=== PATIENT | female | born 1965 | race Caucasian/White ===

== ENCOUNTER → 2020-07-19 15:00 | Outpatient (CLI) | payer BC, SELFPAY ==
--- NOTE | ~2020-07-19 | MM_ITS ---
EXAMINATION: MM screening main BI w keith HISTORY: Screening mammogram TECHNIQUE: Craniocaudal and mediolateral oblique 3-D tomosynthesis images were obtained and synthetic 2-D images were generated. CAD analysis was submitted and interpreted. COMPARISON: 04/08/2019 diagnostic right mammogram 02/10/2019, 01/07/2018, 12/25/2016 bilateral digital screening mammogram examinations BREAST PARENCHYMAL COMPOSITION: There are scattered areas of fibroglandular density. FINDINGS: There is no evidence of suspicious mass, calcification, or architectural distortion to sugg est malignancy in either breast. There has been no suspicious interval change. IMPRESSION: 1. No mammographic evidence of malignancy. 2. Recommend routine screening mammography in one year. BI-RADS Category 1: Negative Reviewed, dictated and finalized at location A.
== END ==
PROVIDERS: Visit Provider Nurse Practitioner
DX: Z12.31 Encounter for screening mammogram for malignant neoplasm of breast (principal)
CPT/HCPCS: 77063; 77067

== ENCOUNTER 2020-07-27 14:57 | Emergency (ER) | payer BC, SELFPAY ==
--- NOTE | ~2020-07-27 | US_ITS ---
US venous doppler LE RT DATE: 07/27/2020 18:07 INDICATION: Right leg pain TECHNIQUE: Real-time and color flow imaging and Doppler analysis of the right lower extremity COMPARISON: None FINDINGS: The right greater saphenous vein is patent. There is spontaneous and phasic flow and normal augmentation and color flow signal and normal compression of the deep veins of the right lower extre mity. IMPRESSION: Negative examination; no evidence of deep venous thrombosis of right leg Reviewed, dictated and finalized at Location [facility]. Reviewed, dictated and finalized at location A. IMPRESSION: Negative examination; no evidence of deep venous thrombosis of righ t leg
[2020-07-27 15:22] VITALS: BP 104/69; PULSE 72; RESP 12; TEMP 36.1; O2SAT 99
--- NOTE | 2020-07-27 15:30 | PC.NURSE ---
discussed with Dr. Mackenzie; orders received to draw d-dimer
[2020-07-27 16:00] LABS: D Dimer 0.27 ug/mL (<0.48)
[2020-07-27 17:12] VITALS: BP 117/72; PULSE 66; RESP 16; TEMP 36.6; O2SAT 100
--- NOTE | 2020-07-27 17:19 | ED.EXTPRO ---
HPI - Extremity Problem General Chief complaint: Extremity Problem,Nontraumatic Stated complaint: headache Time Seen by Provider: 07/27/20 17:09 Source: patient Mode of arrival: ambulatory Limitations: no limitations History of Present Illness HPI Narrative: Patient is a 55 year old female who presents complaining of headache and right leg pain. She reports pain of 3/10 from headache. Patient denies visual changes. She reports having Francis and Francis Covid vaccine on 07/21/20. She was sent by PCP office to rule out DVT related to Covid vaccine. Denies redness or swelling to leg. Reports pain with palpation. She denies shortness of breath, chest pain or other complaints. MD Complaint: extremity pain Related Data Allergies Allergy/AdvReac Type Severity Reaction Status Date / Time No Known Allergies Allergy Verified 09/23/19 08:51 Review of Systems Review of Systems: Narrative: CONSTITUTIONAL: Denies fever, chills, or sweats. EYES: Denies visual changes, redness, or discharge. ENT: Denies rhinorrhea, congestion, sore throat, or otalgia. CARDIOVASCULAR: Denies chest pain, palpitations, or edema. RESPIRATORY: Denies cough or dyspnea. GASTROINTESTINAL: Denies abdominal pain, nausea, vomiting, or diarrhea. GENITOURINARY: Denies dysuria or hematuria. SKIN: Denies rash or itching. MUSCULOSKELETAL:Reports right above the knee leg pain, denies injury. NEUROLOGIC: Denies headache, numbness, dizziness, or weakness. PSYCHIATRIC: Denies anxiety or depression. PENDING SALE TO [facility] Past Medical History Medical History Acute sinusitis, unspecified Benign paroxysmal positional vertigo due to bilateral vestibular disorder BMI 27.0-27.9,adult Mixed hyperlipidemia Family History Family History Grandparent Family history of malignant neoplasm Family history of malignant neoplasm of ovary, Onset Age: 38 Father Carcinoma of colon, Onset Age: 57 Social History Social History Smoking status: Never smoker Alcohol intake: never Substance use: never Substance use type: does not use Comments At the time of signature, I have reviewed and agree with nursing past medical, surgical, social, and family history unless otherwise noted. Please see nursing chart for further information. There is no relevant family history pertinent to the presenting complaint. Exam Narrative: Exam Narrative: GENERAL: Well-appearing, well-nourished, and in no acute distress. HEAD: Normocephalic, atraumatic. EYES: EOMI. No redness or drainage. Conjunctiva are normal. ENT: Mucous membranes pink and moist. Nares clear. No rhinorrhea. TMs normal bilaterally. Throat normal. Uvula midline. NECK: AROM. Supple. No lymphadenopathy. CHEST: No respiratory distress. Clear to auscultation. HEART: Regular rate and rhythm. No murmur appreciated. Normal peripheral pulses. EXTREMITIES: Normal range of motion, no erythema, warmth or edema. SKIN: Warm, dry, no rash. NEURO: No focal deficits. Alert and oriented x3. Gait steady. PSYCH: Normal affect. No signs of depression or anxiety. Course Vital Signs Vital signs: Vital Signs Temperature 36.1 C L 07/27/20 15:22 Pulse Rate 72 07/27/20 15:22 Respiratory Rate 12 07/27/20 15:22 Blood Pressure 104/69 07/27/20 15:22 Pulse Oximetry 99 07/27/20 15:22 Temperature 36.6 C 07/27/20 17:12 Pulse Rate 66 07/27/20 17:12 Respiratory Rate 16 07/27/20 17:12 Blood Pressure 117/72 07/27/20 17:12 Pulse Oximetry 100 07/27/20 17:12 Reviewed MDM - Extremity (Nontraumatic) MDM Narrative Medical decision making narrative: Patient's labs are unremarkable. Ultrasound of right leg negative for DVT. Discussed with patient symptoms that would be concerning and would need a return visit to the ED. Discussed causes of headaches. Enc
[2020-07-27 17:44] LABS: Basophils Absolute Auto 0.1 K/mm3 (0.0-0.1); Basophils Percent Auto 0.8 % (0.2-1.2); Eosinophils Absolute Auto 0.1 K/mm3 (0-0.3); Eosinophils Percent Auto 1.5 % (0-4.4); Hematocrit 38.6 % (37.0-47.0); Hemoglobin 12.8 g/dL (12.0-15.0); Immature Granulocyte Absolute 0.01 K/mm3 (0.00-0.031); Immature Granulocyte Percent A 0.2 % (0-0.5); Lymphocytes Absolute Auto 2.66 K/mm3 (0.9-3.2); Lymphocytes Percent Auto 44.3 % (18.3-44.2); Mean Corpuscular HGB Conc 33.2 g/dl (32-36); Mean Corpuscular Volume 93.5 fl (80-100); Mean Platelet Volume 10.2 fl (7.4-10.4); Monocytes Absolute Auto 0.5 K/mm3 (0.1-0.6); Monocytes Percent Auto 7.8 % (2.6-8.5); Neutrophils Absolute Auto 2.7 K/mm3 (1.3-6.7); Neutrophils Percent Auto 45.4 % (45.5-73.1); Platelet Count Result 305 k/mm3 (150-375); Red Blood Count 4.13 M/mm3 (4.2-5.4); Red Cell Distribution Width 12.6 % (11.5-14.5)
[2020-07-27 17:47] LABS: Alanine Aminotransferase 25 U/L (4-35); Albumin Level 4.4 g/dL (3.5-5.1); Alkaline Phosphatase 53 U/L (38-126); Anion Gap 6 mmol/L (8-16); Aspartate Amino Transferase 32 U/L (14-36); Bilirubin,Total 0.2 mg/dL (0.2-1.3); Blood Urea Nitrogen 18 mg/dL (7-17); Calcium 9.1 mg/dL (8.4-10.2); Carbon Dioxide 31 mmol/L (22-30); Chloride 101 mmol/L (98-107); Estimated CRCL calculation 64 ml/min; Estimated Glomerular Filt Rate > 60; Glucose 110 mg/dL (65-105); Potassium 4.8 mmol/L (3.4-5.0); Sodium 138 mmol/L (137-145)
[2020-07-27 18:50] VITALS: BP 109/67; PULSE 69; RESP 16; O2SAT 100
== END 2020-07-27 18:50 | disposition home or self-care (01) ==
PROVIDERS: Emergency Medicine; Emergency Provider Nurse Practitioner; PCP Family Medicine
DX: M79.604 Pain in right leg (principal); E78.2 Mixed hyperlipidemia; H81.13 Benign paroxysmal vertigo, bilateral
CPT/HCPCS: 36415; 80053; 85025; 85380; 93971; 99284

== ENCOUNTER 2021-12-10 01:17 | Day surgery (SDC) | payer BC, SELFPAY ==
[2021-12-07 10:09] VITALS: BMI 30.2
--- NOTE | 2021-12-07 10:19 | PC.NURSE ---
Report to the Outpatient Waiting Room, entrance under the green pavilion located off [facility], at time 0900 on date 12/10/21. OR Time: 1100. - You and your visitor will be asked to self-screen and do not enter if you have any COVID symptoms. - Only one visitor and NO children visitors are allowed at this time. - The patient visitor is requested to leave or wait in car when not with patient due to restrictions. - A mask is required within the hospital. Patients may have clear liquids (water, carbonated beverages, clear teas, apple juice) until 3 hours prior to surgery with a maximum of 20 ounces. - No food from midnight until time of surgery Take the following medications with a SIP of water the morning of surgery: ESCITALOPRAM Medications to discontinue per physician: VITAMINS/SUPPLEMENTS Date to take last dose: 12/06/21 Please no make-up, nail rwandan, hairspray, perfume, deodorant, or body powder the day of surgery. No jewelry (including any body piercings) or valuables the day of surgery, leave them at home. Please take a shower or bath the night before, or the morning of, surgery with an antibacterial soap. Wear comfortable, loose fitting clothing. - Jewelry must be removed prior to entering the operating room. Rings and piercings that are not removed may be cut off. - The hospital will not accept responsibility for valuables. - Please leave all valuables, including medications, at home the day of surgery. If you are going home after surgery, a licensed hog driver must drive you home. - NO public transportation without another adult. - We recommend that an adult stay with you for 24 hours following discharge. - We also recommend that you do not drive, make important decision, drink alcoholic beverages, or take any drugs that were not prescribed by your health care provider for at least 24 hours after your discharge time. Follow any additional instructions given to you from your surgeon. If you or anyone in your household have experienced Covid symptoms in the past week, please notify your surgeon or the nurse liaison at the phone number below for possible testing. Telephone instructions given to PT - CLEO GROSSMAN and asked if any additional questions and then verbalized understanding. Patient advised to call surgeon office or pre surgery nurse liaison [phone] if any additional questions.
[2021-12-10 09:19] VITALS: BP 106/70; PULSE 68; RESP 16; TEMP 36.1; O2SAT 98
[2021-12-10] MEDS: LACTATED RINGERS 1,000 ML 30 ML IV CONT (09:32)
[2021-12-10] MEDS: KETOROLAC 15 MG/ML VIAL (*BKC) IV PUSH (09:33)
[2021-12-10] MEDS: ACETAMINOPHEN 500 MG TABLET 1000 MG PO (09:33)
--- NOTE | 2021-12-10 09:40 | SUR.PREOP ---
DR FELIPE STATES NO HAIR REMOVAL NEEDED UNLESS PT IS EXTREMELY HAIRY
[2021-12-10 10:04] LABS: Glucose Point of Care 111 mg/dl (65-105)
--- NOTE | 2021-12-10 10:05 | WPDANESEPPF ---
Anes - Initial Pre Proc Eval Procedure: Operation Date: 12/10/21 11:00 Proposed Procedures p Left Trigger Thumb Release - Christopher Armenta MD Date/Time: 12/10/21 10:05 Surgeon: Christopher Armenta MD Pre Op Diagnosis: Lt Trigger Thumb Patient Data Age: 56 Gender: F Height: 1.52 m Weight: 69.3 kg Last Vital Signs Temp 36.1 C L 12/10/21 09:19 Pulse 68 12/10/21 09:19 Resp 16 12/10/21 09:19 BP 106/70 12/10/21 09:19 Pulse Ox 98 12/10/21 09:19 O2 Del Method Room Air 12/10/21 09:19 Allergies Allergy/AdvReac Type Severity Reaction Status Date / Time No Known Allergies Allergy Verified 12/07/21 10:06 Home Medications Medication Instructions Recorded Confirmed Type escitalopram oxalate 10 mg tablet 10 mg PO DAILY #90 tabs 10/27/20 12/10/21 Rx naproxen 500 mg tablet 500 mg PO BID PRN pain #180 tabs 10/27/20 12/10/21 Rx metformin 500 mg tablet,extended 2,000 mg PO QPM #360 tabs 10/17/21 12/10/21 Rx release 24 hr semaglutide 0.25 mg or 0.5 mg (2 0.5 mg (0.4 mL) subcut WEEKLY #1.5 11/29/21 12/10/21 Rx mg/1.5 mL) subcutaneous pen mL injector (Ozempic) vitamin B complex (B 1 tablet PO DAILY 12/06/21 12/10/21 History Complex-Vitamin B12 tablet) Laboratory Tests 12/10/21 10:00 POC Capillary Glucose 111 mg/dl H mg/dl (65-105) Patient hx anesthesia problems: none Family hx anesthesia problems: none Results Review: All pre-operative results and documents have been reviewed as part of the pre-operative evaluation. [facility] Past Medical History Medical History Anxiety BMI 29.0-29.9,adult Diabetes Obesity (BMI 30.0-34.9) Pain of left thumb (~10/03/21) Trigger thumb, left thumb Surgical History Surgical History History of bilateral breast reduction surgery History of prior ablation treatment Family History Family History Grandparent Family history of malignant neoplasm Family history of malignant neoplasm of ovary, Onset Age: 38 Father Carcinoma of colon, Onset Age: 57 Diabetes mellitus Sibling Asthma Social History Social History Smoking status: Former smoker Tobacco type: cigarettes Additional smoking assessment comments: QUIT YEARS AND YEARS AGO Alcohol intake: current Drinks per week: 4 Alcohol use details: vodka Substance use: never Substance use type: does not use Living arrangements: with family 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 Informed Consent: The patient's anesthetic plan and its attendant risks and benefits were discussed with the patient/family/POA. Questions were solicited and answers provided to the satisfaction of the patient/family/POA.
--- NOTE | 2021-12-10 10:17 | WPDHPUPDATE1 ---
History and Physical Update Update Date/Time: 12/10/21 10:17 History and Physical has been reviewed, including an updated exam of the patient. There are NO changes in the patient's condition. Risks, benefits, and alternatives have been discussed and questions answered. Patient agrees to proceed with procedure.
--- NOTE | 2021-12-10 10:24 | WPDHPUPDATE1 ---
History and Physical Update Update Date/Time: 12/10/21 10:24 History and Physical has been reviewed, including an updated exam of the patient. There are NO changes in the patient's condition. Risks, benefits, and alternatives have been discussed and questions answered. Patient agrees to proceed with procedure.
[2021-12-10] MEDS: ceFAZolin 2 GM/D5W 50 ML 2 GM/50 ML BAG IVPB (10:35)
[2021-12-10] MEDS: BUPIVACAINE HCL 0.25% PF 30 ML VIAL 5 ML INFILTRATE (11:00)
[2021-12-10 11:08] VITALS: BP 93/53; PULSE 54; RESP 14; O2SAT 100
--- NOTE | 2021-12-10 11:15 | W.PM.PROC2 ---
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 She was taken to the operating room and transferred to the OR table placing supine taking care to pad the torso and extremities. IV sedation was administered. A nonsterile tourniquet was placed high on the left arm which was prepped and draped in the usual sterile fashion. Several cc of .25 % plain Marcaine was injected into the subcutaneous tissue over the A1 tory of the left first digit. The extremity was exsanguinated and the tourniquet was inflated to 250 mmHg remaining up for about seven minutes. A longitudinal incision was made over the A1 tory. Subcutaneous tissue was bluntly dissected down to the tory while protecting the neurovascular bundles. The A1 tory was identified and then transected longitudinally in line with the incision and tendons. The tendons were delivered into the wound verifying the adequacy of the release. Hemostasis was carried out. The wound was irrigated with sterile saline. Skin edges were reapproximated with 4-0 nylon suture. Sterile dressing was applied. Tourniquet was released. She tolerated the procedure well and was transferred back to a cart, then taken to the recovery area in stable condition. There were no known intraoperative complications. Estimated blood loss was negligible. Perioperative antibiotics were administered. Estimated Blood Loss 1 Tourniquet Time 7 Drains No Packing No Pathology None sent Complications No immediate complications Condition Stable Disposition PACU
[2021-12-10 11:35] VITALS: BP 100/64; PULSE 49; RESP 16; O2SAT 99
[2021-12-10 12:00] VITALS: BP 111/65; PULSE 50; RESP 16
== END 2021-12-10 12:05 | disposition home or self-care (01) ==
PROVIDERS: PCP Family Medicine; Visit Provider Orthopaedic Surgery
PROC: (CPT 26055; principal; 2021-12-10 11:00)
DX: M65.312 Trigger thumb, left thumb (principal); E11.9 Type 2 diabetes mellitus without complications; F41.9 Anxiety disorder, unspecified; E66.9 Obesity, unspecified; Z68.29 Body mass index [BMI] 29.0-29.9, adult; Z79.84 Long term (current) use of oral hypoglycemic drugs; Z79.899 Other long term (current) drug therapy; Z87.891 Personal history of nicotine dependence
CPT/HCPCS: 26055; 82948; A9270; J0690; J1885; J2250; J2704; J3010; J7120

== ENCOUNTER → 2022-05-21 13:24 | Outpatient (CLI) | payer BC, SELFPAY ==
--- NOTE | ~2022-05-21 | MMUS_ITS ---
EXAMINATION: MM diagnostic main BI w keith, US breast LT limited HISTORY: Palpable lump of left breast TECHNIQUE: ML, MLO and CC 3-D tomosynthesis images of both breasts were performed and synthetic 2-D i mages were generated. CAD analysis was submitted and interpreted. High resolution targeted left breas t ultrasound at 2:00 7 cm from nipple at area of clinical complaint of lump was performed. COMPARISON: 07/19/2020 bilateral screening mammogram 04/08/2019 diagnostic right mammogram 02/10/2019 bilateral screening mammogram BREAST PARENCHYMAL COMPOSITION: The breasts are almost entirely fatty. FINDINGS: MAMMOGRAPHIC FINDINGS: No suspicious mass or architectural distortion, malignant calcification, skin thickening or retractio n or significant new or developing density is detected. ULTRASOUND: No suspicious mass or shadowing, cyst or other significant sonographic abnormality is identified at 2 :00 7 cm from nipple at the area of clinical complaint of breast lump. IMPRESSION: 1. No mammographic evidence of malignancy 2. Routine annual mammographic screening is recommended. BI-RADS Category 1: Negative Reviewed, dictated and finalized at location A. DATA MODELER IMPRESSION: 1. No mammographic evidence of malignancy 2. Routine annual mammographic screening is recommended. BI-RADS Category 1: Negative
--- NOTE | ~2022-05-21 | DEXA_ITS ---
Bone Density Report Name: CLEO GROSSMAN Age: 57 Sex: Female Ethnicity: White Date of : 1965 Indication: postmenopausal; screening for osteoporosis; Referring Provider: KEV, KAEL Study: Bone densitometry was performed. Exam Date: May 21, 2022 Accession number: [id number] Bone Density: Region BMD T-score Z-score Classification AP Spine (L1-L4) 0.965 -0.7 0.5 Normal Femoral Neck (Left) 0.688 -1.4 -0.3 Osteopenia Total Hip (Left) 0.907 -0.3 0.5 Normal Femoral Neck (Right) 0.760 -0.8 0.3 Normal Total Hip (Right) 0.968 0.2 1.0 Normal Total Hip Mean 0.938 -0.1 0.8 Normal World Health Organization criteria for BMD impression classify patients as: Normal (T-score at or above -1.0), Osteopenia (T-score between -1.0 and -2.5), or Osteoporosis (T-score at or below -2.5). 10-year Fracture Risk(1): Major Osteoporotic Fracture 6.9% Hip Fracture 0.5% Reported Risk Factors: [place] (), Neck BMD=0.688, BMI=30.1 (1) FRAX(R) Version 3.08. Fracture probability calculated for an untreated patient. Fracture probability may be lower if the patient has received treatment. Previous Exams: Region Exam Age BMD T-score BMD Change BMD Change Date g/cm2 vs Baseline vs Previous AP Spine(L1-L4) 05/21/2022 57 0.965 -0.7 -0.053* -0.053* 01/07/2018 52 1.019 -0.3 Total Hip(Left) 05/21/2022 57 0.907 -0.3 0.004 0.004 01/07/2018 52 0.903 -0.3 Total Hip(Right) 05/21/2022 57 0.968 0.2 0.003 0.003 01/07/2018 52 0.965 0.2 *Denotes significance at 95% confidence level, LSC for AP Spine = 0.022 g/cm2, LSC for Total Hip = 0.027 g/cm2 Clinical Information Provided by Patient: Patient maximum height was 61.2 Menopause Age: 43 No regular weight bearing exercise Drinks caffeinated beverages Onset of menses at age 13 Number of children 1 Impression: The patient has low bone mass, based on the Left Femoral Neck T-score. The patient has an estimated ten-year risk of hip fracture of 0.5% and an estimated ten-year risk of major fracture of 6.9%, based on the WHO FRAX algorithm. The BMD for the AP Spine(L1-L4) decreased, changing by -0.053 since the last DXA exam. Discussion: BONE DENSITY IS LOW AT ONE OR MORE SKELETAL SITES. This patient's lowest T-score is low at one or more skeletal sites. It meets the World Health Organization's (WHO) criteria for ?low bone mass?
== END ==
PROVIDERS: PCP Nurse Practitioner; Visit Provider Obstetrics & Gynecology Gynecology
DX: Z78.0 Asymptomatic menopausal state (principal); N63.20 Unspecified lump in the left breast, unspecified quadrant; M85.852 Other specified disorders of bone density and structure, left thigh
CPT/HCPCS: 76642; 77062; 77066; 77080; G0279

== ENCOUNTER 2022-11-05 01:44 | Day surgery (SDC) | payer BC, SELFPAY ==
[2022-10-24 13:10] VITALS: BMI 31.3
[2022-11-05 06:40] VITALS: BP 113/68; PULSE 66; RESP 18; TEMP 35.8; O2SAT 98; BMI 30.7
[2022-11-05] MEDS: LACTATED RINGERS 1,000 ML 150 ML IV CONT (07:00)
[2022-11-05 07:02] LABS: Glucose Point of Care 148 mg/dl (65-105)
--- NOTE | 2022-11-05 07:48 | PM.HPGS ---
History of Present Illness History of Present Illness Consent: Risks, benefits, and alternatives have been discussed and questions answered. Patient agrees to proceed with procedure. Chief complaint: family hx colon ca, hx colon polyps Narrative: Ade Hanks is a 57 year old female Presents for screening colonoscopy. Patient has had several previous colonoscopies all performed in [place]. In the past she was found to have colon polyps. Family history is significant her father had colon cancer her maternal grandmother also had colon cancer. Patient reports that her own weight appetite and bowel movements are normal. Review of Systems Review of Systems: Review of systems noncontributory. [facility] Past Medical History Medical History (Updated 11/05/22 @ 07:50 by Danilo Petersen MD) Acute bronchitis (~03/13/22) COVID test was negative on 03/14/22 Anxiety BMI 29.0-29.9,adult Diabetes Obesity (BMI 30.0-34.9) Osteopenia Pain of left thumb (~10/03/21) Trigger thumb, left thumb Left trigger thumb release December 10, 2021 Surgical History Surgical History History of bilateral breast reduction surgery History of prior ablation treatment Family History Family History Grandparent Family history of malignant neoplasm Family history of malignant neoplasm of ovary, Onset Age: 38 Father Carcinoma of colon, Onset Age: 57 Diabetes mellitus Sibling Asthma Social History Social History (Updated 07/10/22 @ 08:12 by Jeanette Gallegos MA) Smoking status: Never smoker Tobacco type: cigarettes Additional smoking assessment comments: QUIT YEARS AND YEARS AGO Alcohol intake: current Drinks per week: 2 Alcohol use details: vodka Substance use: never Substance use type: does not use Current Housing: Decline to Answer Concerned About Future Housing: Decline to Answer Difficulty Paying Gas/Electric Bills: Decline to Answer Difficulty Paying for Meds: Decline to Answer Currently Unemployed: Decline to Answer Education: Decline to Answer Difficulty w/ Childcare or Family Care: Decline to Answer Living arrangements: with family Occupation/Education: occupation 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[employer] Spiritual care concerns: No Meds Home Medications and Allergies Home Medications Medication Instructions Recorded Confirmed Type naproxen 500 mg tablet 500 mg PO BID PRN pain #180 tabs 04/05/22 11/05/22 Rx escitalopram oxalate 10 mg tablet 10 mg PO DAILY #90 tabs 07/16/22 11/05/22 Rx metformin 500 mg tablet,extended 2,000 mg PO QPM #360 tabs 11/04/22 11/05/22 Rx release 24 hr Allergies Allergy/AdvReac Type Severity Reaction Status Date / Time No Known Allergies Allergy Verified 11/05/22 06:45 Vital Signs Vital Signs - 24 hr 11/05/22 06:40 Temperature 96.5 F L Pulse Rate 66 Respiratory Rate 18 Blood Pressure 113/68 Pulse Oximetry 98 Oxygen Delivery Room Air Exam Narrative: Physical exam reveals patient to be alert. Vital signs stable. HEENT exam is unremarkable. Patient is anicteric. Lungs are clear to auscultation and percussion. Heart is without murmur or extra sounds. Abdomen bowel sounds are present soft nontender with no organomegaly. Digital external rectal exam is normal. Assessment and Plan Assessment and plan (1) History of colon polyps: Code(s): Z86.010 - Personal history of colonic polyps Status: Acute Assessment and Plan: Patient has had colon polyp on previous colonoscopies. Most recent exam appears to have been 5 years ago in [place]. Continue surveillance at 5 year intervals. (2) Family history of colon cancer in father: Code(s): Z80.0 - Family history of malignant neoplasm of digestive organs Status: Acute Asse
--- NOTE | 2022-11-05 07:54 | WPDANESEPPF ---
Anes - Initial Pre Proc Eval Procedure: Operation Date: 11/05/22 08:00 Proposed Procedures p Colonoscopy - Danilo Petersen MD Date/Time: 11/05/22 07:54 Surgeon: Danilo Petersen MD Pre Op Diagnosis: family hx colon ca, hx colon polyps Patient Data Age: 57 Gender: F Height: 1.52 m Weight: 71.2 kg Last Vital Signs Temp 96.5 F L 11/05/22 06:40 Pulse 66 11/05/22 06:40 Resp 18 11/05/22 06:40 BP 113/68 11/05/22 06:40 Pulse Ox 98 11/05/22 06:40 O2 Del Method Room Air 11/05/22 06:40 Allergies Allergy/AdvReac Type Severity Reaction Status Date / Time No Known Allergies Allergy Verified 11/05/22 06:45 Home Medications Medication Instructions Recorded Confirmed Type naproxen 500 mg tablet 500 mg PO BID PRN pain #180 tabs 04/05/22 11/05/22 Rx escitalopram oxalate 10 mg tablet 10 mg PO DAILY #90 tabs 07/16/22 11/05/22 Rx metformin 500 mg tablet,extended 2,000 mg PO QPM #360 tabs 11/04/22 11/05/22 Rx release 24 hr Laboratory Tests 11/05/22 06:51 POC Capillary Glucose 148 H mg/dl (65-105) Patient hx anesthesia problems: none Family hx anesthesia problems: none Results Review: All pre-operative results and documents have been reviewed as part of the pre-operative evaluation. [facility] Past Medical History Medical History (Updated 11/05/22 @ 07:50 by Danilo Petersen MD) Acute bronchitis (~03/13/22) COVID test was negative on 03/14/22 Anxiety BMI 29.0-29.9,adult Diabetes Obesity (BMI 30.0-34.9) Osteopenia Pain of left thumb (~10/03/21) Trigger thumb, left thumb Left trigger thumb release December 10, 2021 Surgical History Surgical History History of bilateral breast reduction surgery History of prior ablation treatment Family History Family History Grandparent Family history of malignant neoplasm Family history of malignant neoplasm of ovary, Onset Age: 38 Father Carcinoma of colon, Onset Age: 57 Diabetes mellitus Sibling Asthma Social History Social History (Updated 07/10/22 @ 08:12 by Jeanette Gallegos MA) Smoking status: Never smoker Tobacco type: cigarettes Additional smoking assessment comments: QUIT YEARS AND YEARS AGO Alcohol intake: current Drinks per week: 2 Alcohol use details: vodka Substance use: never Substance use type: does not use Current Housing: Decline to Answer Concerned About Future Housing: Decline to Answer Difficulty Paying Gas/Electric Bills: Decline to Answer Difficulty Paying for Meds: Decline to Answer Currently Unemployed: Decline to Answer Education: Decline to Answer Difficulty w/ Childcare or Family Care: Decline to Answer Living arrangements: with family Occupation/Education: occupation 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 Informed Consent: The patient's anesthetic plan and its attendant risks and benefits were discussed with the patient/family/POA. Questions were solicited and answers provided to the satisfaction of the patient/family/POA.
[2022-11-05 08:28] VITALS: BP 118/60; PULSE 56; RESP 16; O2SAT 100
[2022-11-05 08:38] VITALS: BP 115/65; PULSE 53; RESP 18; O2SAT 100
[2022-11-05 08:48] VITALS: BP 111/62; PULSE 55; RESP 18; O2SAT 100
== END 2022-11-05 09:00 | disposition home or self-care (01) ==
PROVIDERS: PCP Family Medicine; Visit Provider Internal Medicine Gastroenterology
PROC: 0DJD8ZZ Inspection of Lower Intestinal Tract, Via Natural or Artificial Opening Endoscopic (ICD-10-PCS; CPT 45378; principal; 2022-11-05 08:00)
DX: Z12.11 Encounter for screening for malignant neoplasm of colon (principal); K64.8 Other hemorrhoids; Z86.010 Personal history of colon polyps; Z80.0 Family history of malignant neoplasm of digestive organs; E11.9 Type 2 diabetes mellitus without complications; F41.9 Anxiety disorder, unspecified; Z79.84 Long term (current) use of oral hypoglycemic drugs; E66.9 Obesity, unspecified; Z68.30 Body mass index [BMI] 30.0-30.9, adult; Z87.891 Personal history of nicotine dependence
CPT/HCPCS: 45378; 82948; J2001; J2704; J7120

== ENCOUNTER 2023-01-21 01:19 | Day surgery (SDC) | payer BC, SELFPAY ==
[2023-01-14 10:40] VITALS: BMI 31.2
--- NOTE | 2023-01-14 10:47 | PC.NURSE ---
Report to the Outpatient Waiting Room, entrance under the green pavilion located off [facility], at time 7:00 on date 01/21/23. Planned Procedure Time: 9:00. Time changes happen often and if your time is changed the preop area will call you the afternoon before. - You and your visitor will be asked to self-screen and do not enter if you have any COVID symptoms. - A mask is optional within the hospital at this time. Patients may have clear liquids (water, carbonated beverages, clear teas, apple juice) until 3 hours prior to surgery with a maximum of 20 ounces. - No food from midnight until time of surgery Take the following medications with a SIP of water the morning of surgery: LEXAPRO DO NOT STOP ANY OF YOUR OTHER PRESCRIPTION MEDICATIONS PRIOR TO SURGERY ?EXCEPT THE FOLLOWING Medications to discontinue per physician: VITAMINS Date to take last dose: 01/17/23 Please no make-up, nail qatari, hairspray, perfume, deodorant, or body powder the day of surgery. No jewelry (including any body piercings) or valuables the day of surgery, leave them at home. Please take a shower or bath the night before, or the morning of, surgery with an antibacterial soap. Wear comfortable, loose fitting clothing. - Jewelry must be removed prior to entering the operating room. Rings and piercings that are not removed may be cut off. - The hospital will not accept responsibility for valuables. - Please leave all valuables, including medications, at home the day of surgery. If you are going home after surgery, a licensed hazmat tanker driver must drive you home. - NO public transportation without another adult if you receive anesthesia. - We recommend that an adult stay with you for 24 hours following discharge. - We also recommend that you do not drive, make important decision, drink alcoholic beverages, or take any drugs that were not prescribed by your health care provider for at least 24 hours after your discharge time. Follow any additional instructions given to you from your surgeon. If you or anyone in your household have experienced Covid symptoms in the past week, please notify your surgeon or the nurse liaison at the phone number below for possible testing. Telephone instructions given to PT Suzette GROSSMAN and asked if any additional questions and then verbalized understanding. Patient advised to call surgeon office or pre surgery nurse liaison [phone] if any additional questions.
--- NOTE | 2023-01-21 07:20 | WPDHPUPDATE1 ---
History and Physical Update Update Date/Time: 01/21/23 07:20 History and Physical has been reviewed, including an updated exam of the patient. There are NO changes in the patient's condition. Risks, benefits, and alternatives have been discussed and questions answered. Patient agrees to proceed with procedure.
[2023-01-21] MEDS: ACETAMINOPHEN 500 MG TABLET 1000 MG PO (07:42)
--- NOTE | 2023-01-21 07:48 | WPDANESEPPF ---
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 Patient Data Age: 57 Gender: F Height: 1.52 m Weight: 72.6 kg Allergies Allergy/AdvReac Type Severity Reaction Status Date / Time No Known Allergies Allergy Verified 01/21/23 07:28 Home Medications Medication Instructions Recorded Confirmed Type escitalopram oxalate 10 mg tablet 10 mg PO DAILY #90 tabs 07/16/22 01/14/23 Rx metformin 500 mg tablet,extended 2,000 mg PO QPM #360 tabs 11/04/22 01/14/23 Rx release 24 hr magnesium 200 mg tablet 200 mg PO DAILY 01/01/23 01/14/23 History naproxen 500 mg tablet 500 mg PO BID PRN pain #180 tabs 01/14/23 01/14/23 Rx Patient hx anesthesia problems: none Family hx anesthesia problems: none Results Review: All pre-operative results and documents have been reviewed as part of the pre-operative evaluation. [facility] Past Medical History Medical History Acute bronchitis (~03/13/22) COVID test was negative on 03/14/22 Anxiety BMI 29.0-29.9,adult Diabetes Obesity (BMI 30.0-34.9) Osteopenia Pain of left thumb (~10/03/21) Radial styloid tenosynovitis of left hand Restless legs Surgical History Surgical History History of bilateral breast reduction surgery History of prior ablation treatment Trigger thumb, left thumb Left trigger thumb release December 10, 2021 Family History Family History Grandparent Family history of malignant neoplasm Family history of malignant neoplasm of ovary, Onset Age: 38 Father Carcinoma of colon, Onset Age: 57 Diabetes mellitus Sibling Asthma Social History Social History Smoking packs per day: 0.75 Smoking cigarettes per day: 15.0 Years smoked: 4 Smoking pack-years: 3.00 Smoking status: Former smoker Tobacco type: cigarettes Smoking end date: 04/14/92 Additional smoking assessment comments: QUIT YEARS AND YEARS AGO Alcohol intake: current Drinks per week: 2 Alcohol use details: vodka Substance use: never Substance use type: does not use Lack of Transportation: No Lack of Food: Never True Current Housing: I Have Housing Concerned About Future Housing: No Difficulty Paying Gas/Electric Bills: No Difficulty Paying for Meds: No Currently Unemployed: No Education: High School Diploma/GED Difficulty w/ Childcare or Family Care: No Living arrangements: with family Occupation/Education: occupation 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 Informed Consent: The patient's anesthetic plan and its attendant risks and benefits were discussed with the patient/family/POA. Questions were solicited and answers provided to the satisfaction of the patient/family/POA.
[2023-01-21] MEDS: LACTATED RINGERS 1,000 ML 30 ML IV CONT (07:55)
[2023-01-21 08:01] VITALS: BP 132/69; PULSE 57; RESP 16; TEMP 36.7; O2SAT 98
[2023-01-21 08:13] LABS: Anion Gap 2 mmol/L (8-16); Blood Urea Nitrogen 16 mg/dL (7-17); Calcium 8.6 mg/dL (8.4-10.2); Carbon Dioxide 30 mmol/L (22-30); Chloride 106 mmol/L (98-107); Estimated CRCL calculation 69 ml/min; Estimated Glomerular Filt Rate > 60; Glucose 126 mg/dL (65-110); Potassium 3.8 mmol/L (3.4-5.0); Sodium 138 mmol/L (137-145)
[2023-01-21] MEDS: ceFAZolin 2 GM/D5W 50 ML 2 GM/50 ML BAG IVPB (08:47)
[2023-01-21] MEDS: BUPIVACAINE/EPINEPHRINE 0.5% 10 ML VIAL 2 ML INFILTRATE (09:13)
[2023-01-21 09:19] VITALS: BP 86/46; PULSE 50; RESP 10; O2SAT 93
--- NOTE | 2023-01-21 09:20 | W.PM.PROC2 ---
Procedure Note - Detailed Date of Procedure 01/21/23 Pre-op Diagnosis De Quervain left wrist Post-op Diagnosis Same Procedure Performed Left first dorsal compartment release Surgeon Christopher Armenta MD Concrete Block Plant Supervisor Jordon Anesthesia MAC and Local Description of Procedure The patient was identified and proper site identified. She was taken to the operating room and transferred to the OR table placing her supine taking care to pad the torso and extremities. A nonsterile tourniquet was placed high on the left arm which was prepped and draped in usual sterile fashion. She was administered IV sedation. Several cc of 0.5% Marcaine and epinephrine solution was infiltrated into the subcutaneous tissue over the left radial styloid. The extremity was exsanguinated and the tourniquet was inflated to 200 mmHg remaining up for approximately 6 minutes. A longitudinal incision was made over the radial styloid and the subcutaneous tissue was bluntly dissected protecting neurovascular structures. The first dorsal compartment was identified and then transected in line with the tendons releasing the contents. The tendons were delivered into the wound to verify the adequacy of the release. The wound was irrigated with sterile saline. Hemostasis was carried out. Skin edges were reapproximated with 4-0 Prolene suture and Steri-Strips. Sterile dressing was applied. Tourniquet was released. She tolerated procedure well and was transferred back to the cart and taken to the recovery area in stable condition. There were no known intraoperative complications. Estimated blood loss was 0. Perioperative antibiotics were administered. Estimated Blood Loss 0 Tourniquet Time 6 Drains No Packing No Pathology None sent Complications No immediate complications Condition Stable Disposition PACU [facility] Billing Surgery - Charge Forward: Surgery Billing ([id number])
[2023-01-21 09:48] LABS: Glucose Point of Care 109 mg/dl (65-105)
[2023-01-21 09:49] VITALS: BP 119/66; PULSE 43; RESP 16
[2023-01-21 10:15] VITALS: BP 128/97; PULSE 48; RESP 16
[2023-01-21 10:45] VITALS: BP 128/97; PULSE 48; RESP 16
== END 2023-01-21 10:51 | disposition home or self-care (01) ==
PROVIDERS: PCP Family Medicine; Visit Provider Orthopaedic Surgery
PROC: (CPT 25000; principal; 2023-01-21 09:00)
DX: M65.4 Radial styloid tenosynovitis [de Quervain] (principal); F41.9 Anxiety disorder, unspecified; E11.9 Type 2 diabetes mellitus without complications; M85.80 Other specified disorders of bone density and structure, unspecified site; Z79.1 Long term (current) use of non-steroidal anti-inflammatories (NSAID); Z79.84 Long term (current) use of oral hypoglycemic drugs; Z87.891 Personal history of nicotine dependence; Z80.41 Family history of malignant neoplasm of ovary; Z80.0 Family history of malignant neoplasm of digestive organs; E66.9 Obesity, unspecified; Z68.32 Body mass index [BMI] 32.0-32.9, adult
CPT/HCPCS: 25000; 36415; 80048; 82948; A9270; J0690; J1100; J2250; J2405; J2704; J3010; J7120

== ENCOUNTER → 2023-06-17 16:10 | Outpatient (CLI) | payer BC, SELFPAY ==
--- NOTE | ~2023-06-17 | MM_ITS ---
EXAMINATION: MM screening main BI w keith HISTORY: Screening mammogram TECHNIQUE: Craniocaudal and mediolateral oblique 3-D tomosynthesis images were obtained and synthetic 2-D images were generated. CAD analysis was submitted and interpreted. COMPARISON: May 21, 2022 diagnostic bilateral mammogram and limited left breast ultrasound examin ation July 19, 2020 bilateral screening mammogram BREAST PARENCHYMAL COMPOSITION: The breasts are almost entirely fatty. FINDINGS: There is no evidence of suspicious mass, calcification, or architectural distortion to sugg est malignancy in either breast. There has been no suspicious interval change. IMPRESSION: 1. No mammographic evidence of malignancy. 2. Recommend routine screening mammography in one year. BI-RADS Category 1: Negative Reviewed, dictated and finalized at location A. SILK GRADER
== END ==
PROVIDERS: PCP Nurse Practitioner; Visit Provider Nurse Practitioner
DX: Z12.31 Encounter for screening mammogram for malignant neoplasm of breast (principal)
CPT/HCPCS: 77063; 77067

== ENCOUNTER 2025-01-14 07:53 | Outpatient (CLI) | payer BC, SELFPAY ==
--- NOTE | 2025-01-14 08:00 | ECG_ITS ---
Test Date: 2025-01-14 08:09:27 Measurements Intervals Lyons Rate: 63 P: 37 LA: 109 QRS: 60 QRSD: 89 T: 0 QT: 401 QTc: 412 Interpretive Statements SINUS RHYTHM WITH SHORT LA INTERVAL DELAYED PRECORDIAL R/S TRANSITION LOW QRS VOLTAGE IN PRECORDIAL LEADS BORDERLINE T WAVE ABNORMALITY- ANT/INF LEADS BASELINE WANDER- I, II, III BORDERLINE ECG No previous ECG available for comparison Electronically Signed On 01-14-2025 08:21:46 CDT by Sriram Casanova D.O.
--- OUTSIDE RECORDS SUMMARY | 2025-01-14 08:01 | XMS_ITS | Clinical Summary ---
Author Organization [facility] unty Address [address] [place] [address] Phone Care Team Providers Care Twine Reeling Machine Operator Name Role Phone Kevin Manuel MD Primary Care Provider [phone] Allergies No known active allergies Medications ESCITALOPRAM OXALATE (LEXAPRO ORAL) Take 10 mg by mouth daily. Active NAPROXEN ORAL Take 500 mg by mouth daily. Active metFORMIN (GLUCOPHAGE) 500 mg Oral tablet Take 2,000 mg by mouth daily with breakfast. Active Active Problems Problem Noted Date Diagnosed Date Bleeding internal hemorrhoids 11/09/2014 External hemorrhoids with complication 5 Family History Medical History Relation Name Comments Colon Cancer Father cause of Cancer Maternal Aunt throat Cancer Maternal Grandmother unknown source Ovarian Cancer Paternal Grandmother 38 Relation Name Status Comments Father Maternal Aunt Maternal Grandmother Paternal Grandmother Social History Tobacco Use Types Packs/Day Years Used Date Smoking Tobacco: Former Cigarettes Q uit: 04/14/1994 Smokeless Tobacco: Never Alcohol Use Standard Drinks/Week Comments Yes 0 (1 standard drink = 0.6 oz pur e alcohol) occasional Comments No Sex and Gender Information Value Date Recorded Sex Assigned at Not on file Legal Sex Female 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 Gender Identity Not on file Sexual Orientation Not on file Occupation Industry Job Start Date Job End Date Not on file Not on file Not on file Not on file Last Filed Vital Signs Vital Sign Reading Time Taken Comments Blood Pressure 90/49 01/28/2019 7:47 AM CDT Pulse 76 01/28/2019 7:47 AM CDT Temperature 36.1 C (96.9 F) 01/28/2019 7:35 AM CDT Respiratory Rate 18 01/28/2019 7:47 AM CDT Oxygen Saturation 100% 01/28/2019 7:47 AM CDT Inhaled Oxygen Concentration - - Weight 71.8 kg (158 lb 6.4 oz) 01/28/2019 6:39 A M CDT Height 152.4 cm (5') 01/28/2019 6:39 AM CDT Body Mass Index 30.94 01/28/2019 6:39 AM CDT Plan of Treatment Health Maintenance Due Date Last Done Comments DTAP/TDAP/TD VACCINES (1 - Tdap) 1984 HEPATITIS B VACCINES (1 of 3 - 19+ 3-dose series) 1984 HPV/Cotest (21-29) 1986 CERVICAL CANCER SCREENING 1995 HPV/Cotest (30-65) 1995 PAP SMEAR 1995 BREAST CANCER SCREENING 2005 FIT-DNA Q 3 years 2010 FIT/FOBT Q 1 year 2010 Flex Sig/CT Colonography Q 5 years 2010 ZOSTER VACCINE (1 of 2) 2015 COLORECTAL SCREENING 01/29/2024 01/28/2019, 01/28/2019, 06/19/2011, Additional history exists Colorectal Cancer Screening 01/29/2024 INFLUENZA VACCINE (#1) 2024 Procedures Procedure Name Priority Date/Time Associated Diagnosis Comments COLONOSCOPY REPORT 01/28/2019 7: 36 AM CDT from Last 3 Months or Most Recently Relevant to Health Maintenance Results * COLONOSCOPY REPORT (01/28/2019 7:36 AM CDT) Narrative Procedure Note Kyle Dalton MD - 01/28/2019 7:35 AM CDT [facility] Endoscopy Patient Name: Ade Grossman Procedure Date: 01/28/2019 Date of : 1965 Admit Type: Outpatient Attending MD: Kyle Dalton MD Procedure: Colonoscopy Indications: High risk colon cancer surveillance: Personal history of colonic polyps, Last colonoscopy: June 2011 Providers: Kyle Dalton MD Referring MD: Kevin Manuel MD Medicines: TIVA Complications: No immediate complications. Procedure: Informed consent was obtained for the procedure, including moderate sedation after risks were discussed. Based on the pre-procedure assessment, including review of the patient's medical history, medications, allergies, and review of systems, the patient was deemed to be an appropriate candidate for sedation. A timeout was performed. Continuous ECG monitoring, pulse oximetry, blood pressure monitoring, and direct observation were performed. The Colonoscope was introduced through the anus and advanced to the cecum, identified by the appendiceal orifice, ileocecal valve and palpation. The colonoscopy was performed without difficulty. The patient tolerated the procedure well. The quality of the bowel preparation was excellent. Findings: The entire examined colon appeared normal on direct and retroflexion views. Impression: - The entire examined colon is normal on direct and retroflexion views. - No specimens collected. Recommendation: - Repeat colonoscopy in 5 years for surveillance. Kyle Dalton MD 01/28/2019 7:34:54 AM This report has been signed electronically. Number of Addenda: [phone] ; [place] [address] Kyle Dalton MD GI PROCEDURE ORDERABLES Final R esult from Last 3 Months or Most Recently Relevant to Health Maintenance Insurance BLUE ACCESS/TRUE BLUE PPO Advance Directives For more information, please contact: [phone] * Full Code (Latest Code Status on File) Date Activated Date Inactivated Comments 06/19/2011 7:49 AM 06/20/2011 2:01 AM Care Teams Twine Reeling Machine Operator Relationship Specialty Start Date End Date Kevin Manuel MD [address] [place] [address] PCP - General Family Practice 05/02/11
[2025-01-14 08:40] LABS: Anion Gap 5 mmol/L (4-12); Blood Urea Nitrogen 16 mg/dL (7-17); Calcium 9.0 mg/dL (8.4-10.2); Carbon Dioxide 28 mmol/L (22-30); Chloride 104 mmol/L (98-107); Estimated Glomerular Filt Rate > 60; Glucose 157 mg/dL (65-110); Potassium 4.4 mmol/L (3.4-5.0); Sodium 137 mmol/L (137-145)
== END 2025-01-14 07:54 | disposition home or self-care (01) ==
LOC: ANHSURGERY 07:57
PROVIDERS: Anesthesiology; PCP Family Medicine; Visit Provider Surgery
DX: E11.9 Type 2 diabetes mellitus without complications (principal); Z01.818 Encounter for other preprocedural examination
CPT/HCPCS: 36415; 80048; 93005

== ENCOUNTER 2025-01-17 01:45 | Day surgery (SDC) | payer BC, SELFPAY ==
[2025-01-11 10:09] VITALS: BMI 26.6
--- NOTE | 2025-01-11 10:17 | PC.NURSE ---
[facility] has started construction of its new state of the art ER which will open Spring 2026. With this, we anticipate parking may be a challenge for some our surgical patients and families. Parking spaces are limited but are available for all Surgical, obstetrics, and ER patients sharing this lot. If you arrive and find you are having a hard time finding a parking space, please note that we understand the challenges, please drive around the hospital and park near Hospital Entrance 1. When you enter this entrance, you can ask a volunteer to direct or take you back to the surgical waiting area to check in. We appreciate everyone?s understanding of these expected challenges while we build for your future. Report to the Outpatient Waiting Room, entrance under the green pavilion located off [facility] [facility] [address], at time _1000__ on date 01/17/25. Planned Procedure Time: _1200_.? Time changes happen often and if your time is changed the preop area will call you the afternoon before. - You and your visitor will be asked to self-screen and do not enter if you have any COVID symptoms. Please call surgeon if you need to reschedule. - A mask is optional within the hospital at this time. Patients may have clear liquids (water, carbonated beverages, clear teas, apple juice) until 3 hours prior to surgery with a maximum of 20 ounces. - No food from midnight until time of surgery and no smoking, or chewing tobacco (or any form of nicotine). No chewing gum, candy or mints. - Infants may have breast milk until 4 hours before surgery, formula 6 hours prior to surgery. - Children will be allowed to drink immediately following surgery.? If applicable, please bring a bottle or sippy cup to assist with drinking. Juice, water, soda, and popsicles are readily available.? For infants on formula, please bring formula the day of surgery.? Pacifiers are allowed. Take only the following medications with a SIP of water on the morning of surgery: LEXPRO DO NOT STOP ANY OF YOUR OTHER PRESCRIPTION MEDICATIONS PRIOR TO SURGERY EXCEPT THE FOLLOWING Hold all vitamins and supplements for 3 days per anesthesiologist. Medications to discontinue per physician Date to take last dose Please no make-up, nail bengali, hairspray, perfume, deodorant, or body powder the day of surgery.? No jewelry (including any body piercings) or valuables the day of surgery, leave them at home.? Please take a shower or bath the night before, or the morning of, surgery with HIBICLENS antibacterial soap.? Wear comfortable, loose fitting clothing.? Children are encouraged to wear pajamas. - Jewelry must be removed prior to entering the operating room.? Rings and piercings that are not removed may be cut off. - The hospital will not accept responsibility for valuables.? - Please leave all valuables, including medications, at home the day of surgery. If you are going home after surgery, a licensed power screwdriver operator must drive you home.? - NO public transportation without another adult if you receive anesthesia. - We recommend that an adult stay with you for 24 hours following discharge. - We also recommend that you do not drive, make important decision, drink alcoholic beverages, or take any drugs that were not prescribed by your health care provider for at least 24 hours after your discharge time. For Pediatric surgeries, we recommend two adults accompany the child home. Follow any additional instructions given to you from your surgeon. Telephone instructions given to __PATIENT___and asked if any additional questions and then verbalized understanding. Patient advised to call surgeon office or pre surgery nurse liaison [phone] if any additional questions.
[2025-01-17] VITALS (7 sets, daily range): BP systolic 101–118; BP diastolic 54–68; PULSE 49–62; RESP 12–16; TEMP 36.1; O2SAT 94–100
--- OUTSIDE RECORDS SUMMARY | 2025-01-17 01:49 | XMS_ITS | Clinical Summary ---
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 Gender Identity Not on file Sexual Orientation [...] Dalton MD - 01/28/2019 7:35 AM CDT [facility] Endoscopy Patient Name: Ade Grossman Procedure [...] of Addenda: [phone] ; [place] [address] Kyle Dalton MD GI PROCEDURE ORDERABLES Final R esult from Last 3 Months or Most Recently Relevant to Health Maintenance Insurance BLUE ACCESS/TRUE BLUE PPO Advance Directives For more information, please contact: [phone] * Full Code (Latest Code Status on File) Date Activated Date Inactivated Comments 06/19/2011 7:49 AM 06/20/2011 2:01 AM Care Teams Fuel Cell Engineer Relationship Specialty Start Date End Date Kevin Manuel MD [address] [place] [address] PCP - General Family Practice 05/02/11
--- NOTE | 2025-01-17 10:17 | P.HP_ITS ---
H&P: HPI History of Present Illness Date/Time: 01/17/25 10:17 Chief Complaint: Bleeding hemorrhoids Narrative: Ade is a 59 y/o female who presents for evaluation of hemorrhoids at the request of Dr. Manuel. She has been experiencing bleeding for about multiple months now. She notes blood on the toilet paper when wiping and mixed into the stool. The area is swollen and causing a burning pain. She feels her symptoms are always worse after straining. She does occasional sitz baths. She had applied OTC medicine with no relief. Review of Systems Review of Systems: All systems reviewed & are unremarkable except as noted in HPI and below PMFSH Past Medical History Medical History Screening for diabetic retinopathy no diabetic retinopathy 04/05/2024. Acute non-recurrent maxillary sinusitis Hemorrhoid BMI 32.0-32.9,adult Restless legs Osteopenia Acute bronchitis (~03/13/22) COVID test was negative on 03/14/22 Diabetes Anxiety Pain of left thumb (~10/03/21) Obesity (BMI 30.0-34.9) COVID-19 (~04/2021) fully vaccinated and mild case Serum potassium elevated potassium was elevated at 5.4 on 10/01/2021 and normal at 4.9 on 10/09/2021. BMI 29.0-29.9,adult Surgical History Surgical History Radial styloid tenosynovitis of left hand First dorsal compartment release January 21, 2023 Trigger thumb, left thumb Left trigger thumb release December 10, 2021 History of prior ablation treatment History of bilateral breast reduction surgery Family History Family History Grandparent Family history of malignant neoplasm Family history of malignant neoplasm of ovary, Onset Age: 38 Father Carcinoma of colon, Onset Age: 57 Diabetes mellitus Sibling Asthma Social History Social History Smoking packs per day: 0.75 Smoking cigarettes per day: 15.0 Years smoked: 4 Smoking pack-years: 3.00 Smoking status: Never smoker Tobacco type: cigarettes Smoking end date: 04/14/92 Additional smoking assessment comments: QUIT YEARS AND YEARS AGO Alcohol intake: current Drinks per week: 2 Alcohol use details: vodka Substance use: never Substance use type: does not use Lack of Transportation: No Lack of Food: Never True Current Housing: I Have Housing Concerned About Future Housing: No Difficulty Paying Gas/Electric Bills: No Difficulty Paying for Meds: No Currently Unemployed: No Education: High School Diploma/GED Difficulty w/ Childcare or Family Care: No Living arrangements: with family Occupation/Education: occupation 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[employer] Spiritual care concerns: No Meds Home Medications and Allergies Home Medications ?Medication ?Instructions ?Recorded ?Confirmed ?Type escitalopram oxalate 10 mg tablet 10 mg PO DAILY #90 t abs 04/13/24 01/11/25 Rx naproxen 500 mg tablet 500 mg PO BID PRN pain #180 tabs 08/04/24 01/11/25 Rx hydrocortisone acetate 25 mg 25 mg RECTAL DAILY PRN he morrhoids 09/01/24 01/11/25 Rx rectal suppository (Anusol-HC) #12 ea tirzepatide 2.5 mg/0.5 mL 2.5 mg subcut WEEKLY 5 01/11/25 History subcutaneous pen injector (Mounjaro) hydrocortisone 2.5 % topical cream 1 applic RECTAL BID PRN 11/10/24 01/11/25 Rx with perineal applicator hemorrhoids #30 grams (Anusol-HC) metformin 500 mg tablet,extended 2,000 mg PO QAM 01/1101/11/25 History release 24 hr Allergies Allergy/AdvReac Type Severity Reaction Status Date / Time No Known Allergies Allergy Verified 01/11/25 10:05 Exam Const: General: cooperative, comfortable and no acute distress Resp: Auscultation: clear to auscultation bilaterally Cardio: Rate: regular rate Rhythm: regular rhythm GI: Inspection: normal to inspection Assessment and Plan Assessment and plan (1) External hemorrhoid: Code(s): K64.4 - Residual hemorrhoidal skin tags Status: Acute Assessment and Plan: refractory to conservative management, will proceed exam under anesthesia and hemorrhoidectomy in the operating room
--- NOTE | 2025-01-17 10:19 | WPDHPUPDATE1 ---
History and Physical Update Update Date/Time: 01/17/25 10:19 History and Physical has been reviewed, including an updated exam of the patient. There are NO changes in the patient's condition. Risks, benefits, and alternatives have been discussed and questions answered. Patient agrees to proceed with procedure.
--- NOTE | 2025-01-17 10:54 | P.PNAN_ITS ---
Anes - Initial Pre Proc Eval Procedure: Operation Date: 01/17/25 12:00 Proposed Procedures p Examination under Anesthesia, Hemorrhoidectomy - Violette Newman MD Date/Time: 01/17/25 10:54 Surgeon: Violette Newman MD Pre Op Diagnosis: external hemorrhoids Patient Data Age: 59 Gender: F Height: 1.52 m Weight: 62 kg Allergies Allergy/AdvReac Type Severity Reaction Status Date / Time No Known Allergies Allergy Verified 01/11/25 10:05 Home Medications ?Medication ?Instructions ?Recorded ?Confirmed ?Type escitalopram oxalate 10 mg tablet 10 mg PO DAILY #90 t abs 04/13/24 01/11/25 Rx naproxen 500 mg tablet 500 mg PO BID PRN pain #180 tabs 08/04/24 01/11/25 Rx hydrocortisone acetate 25 mg 25 mg RECTAL DAILY PRN he morrhoids 09/01/24 01/11/25 Rx rectal suppository (Anusol-HC) #12 ea tirzepatide 2.5 mg/0.5 mL 2.5 mg subcut WEEKLY 5 01/11/25 History subcutaneous pen injector (Mounjaro) hydrocortisone 2.5 % topical cream 1 applic RECTAL BID PRN 11/10/24 01/11/25 Rx with perineal applicator hemorrhoids #30 grams (Anusol-HC) metformin 500 mg tablet,extended 2,000 mg PO QAM 01/1101/11/25 History release 24 hr Patient hx anesthesia problems: none Family hx anesthesia problems: none Results Review: All pre-operative results and documents have been reviewed as part of the pre- operative evaluation. [facility] Past Medical History Medical History Screening for diabetic retinopathy no diabetic retinopathy 04/05/2024. Acute non-recurrent maxillary sinusitis Hemorrhoid BMI 32.0-32.9,adult Restless legs Osteopenia Acute bronchitis (~03/13/22) COVID test was negative on 03/14/22 Diabetes Anxiety Pain of left thumb (~10/03/21) Obesity (BMI 30.0-34.9) COVID-19 (~04/2021) fully vaccinated and mild case Serum potassium elevated potassium was elevated at 5.4 on 10/01/2021 and normal at 4.9 on 10/09/2021. BMI 29.0-29.9,adult Surgical History Surgical History Radial styloid tenosynovitis of left hand First dorsal compartment release January 21, 2023 Trigger thumb, left thumb Left trigger thumb release December 10, 2021 History of prior ablation treatment History of bilateral breast reduction surgery Family History Family History Grandparent Family history of malignant neoplasm Family history of malignant neoplasm of ovary, Onset Age: 38 Father Carcinoma of colon, Onset Age: 57 Diabetes mellitus Sibling Asthma Social History Social History Smoking packs per day: 0.75 Smoking cigarettes per day: 15.0 Years smoked: 4 Smoking pack-years: 3.00 Smoking status: Never smoker Tobacco type: cigarettes Smoking end date: 04/14/92 Additional smoking assessment comments: QUIT YEARS AND YEARS AGO Alcohol intake: current Drinks per week: 2 Alcohol use details: vodka Substance use: never Substance use type: does not use Lack of Transportation: No Lack of Food: Never True Current Housing: I Have Housing Concerned About Future Housing: No Difficulty Paying Gas/Electric Bills: No Difficulty Paying for Meds: No Currently Unemployed: No Education: High School Diploma/GED Difficulty w/ Childcare or Family Care: No Living arrangements: with family Occupation/Education: occupation 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 Informed Consent: The patient's anesthetic plan and its attendant risks and benefits were discussed with the patient/family/POA. Questions were solicited and answers provided to the satisfaction of the patient/family/POA.
[2025-01-17] MEDS: KETOROLAC 15 MG/ML VIAL (*BKC) IV PUSH (11:22)
[2025-01-17] MEDS: ACETAMINOPHEN 500 MG TABLET 1000 MG PO (11:22)
[2025-01-17] MEDS: LIDOCAINE 2% GEL UROJET 10 ML PKG MUCOUS MEM (12:00)
[2025-01-17] MEDS: ceFAZolin 2 GM in SODIUM CHLORIDE 0.9% IV 50 ML 100 ML IVPB (12:00)
[2025-01-17] MEDS: BUPIVACAINE/EPINEPHRINE 0.5% 50 ML VIAL 30 ML INFILTRATE (12:00)
--- NOTE | 2025-01-17 12:29 | S_PTH ---
PATIENT: Ade Hanks LOC: [facility] U#:[id number] AGE/SX: 59/F ROOM: RE01/17/[address]: Violette Newman MD : 1965 BED: DIS: 01/17/2025 SPEC #: [id number] RECD: 01/17/25 13:26 STATUS: ARTEM REThom #: [id number] REID: 01/17/25 12:[address]: Violette Newman DEPT: [facility] Surgical RECD BY: Rachele Reed ENTERED: 01/17/25 13:26 SP TYPE: Surgical OTHR DR: Kevin Manuel MD Tissues: A - Hemorroid Procedures: Hematoxylin and Eosin Stain Gross and Microscopic Level 3
[2025-01-17] MEDS: LACTATED RINGERS 1,000 ML 30 ML IV CONT (12:37)
--- NOTE | 2025-01-17 12:41 | P.OP_ITS ---
Procedure Note - Detailed Date of Procedure 01/17/25 Pre-op Diagnosis bleeding external hemorrhoids Post-op Diagnosis Same Procedure Performed Exam under anesthesia, external hemorrhoidectomy involving left lateral and right anterior positions Surgeon Violette Newman MD Anesthesia General and Local Indications 59-year-old female presenting to the office with bleeding external hemorrhoids. Patient reports that these have been refractory to conservative management. Findings Multiple external hemorrhoids, no active bleeding Description of Procedure The patient was taken to the operating room and placed in the modified lithotomy position. After adequate induction of general anesthesia, the patient was prepped and draped in the normal sterile fashion. A time-out was then done to verify the patient's identity, as well as the procedure being performed. I began by doing a digital exam. There was noted to be multiple external hemorrhoids, however no internal hemorrhoids were noted. At this point, a b ilateral pudendal block was done. Then used the lone Star retractor to further evaluate the anal canal as well as rectum, other than external hemorrhoids no other pathology was noted. I then began excising the external hemorrhoids using the hand-held LigaSure device. The hemorrhoids were noted to be in the left lateral and right anterior positions. Multiple hemorrhoids were excised using the LigaSure. The specimens will be sent to pathology for further review. Hemostasis was noted at all excision sites. I then placed a piece of Gelfoam covered with lidocaine jelly into the rectal vault. The patient tolerated the procedure and was extubated in the operating room postop. She will be transferred to the recovery room in stable condition. Implants Gelfoam covered with lidocaine jelly in the rectal vault Estimated Blood Loss 5 Drains No Packing Yes Pathology Yes Complications No immediate complications Condition Stable Disposition PACU [facility] Billing Surgery - Charge Forward: Surgery Billing
== END 2025-01-17 14:22 | disposition home or self-care (01) ==
PROVIDERS: PCP Family Medicine; Visit Provider Surgery
PROC: (CPT 46250; principal; 2025-01-17 12:00)
DX: K64.4 Residual hemorrhoidal skin tags (principal); E11.9 Type 2 diabetes mellitus without complications; Z87.891 Personal history of nicotine dependence
CPT/HCPCS: 46250; 82948; 88304; J0690; A9270; J1885; J2003; J2250; J2405; J2704; J3010; J7120